=== PATIENT | male | born 1955 | race Caucasian/White ===

== ENCOUNTER 2019-05-27 06:37 | Day surgery (SDC) | payer MEDICARE ==
[2019-05-27] VITALS (9 sets, daily range): BP systolic 155–194; BP diastolic 98–103
[~2019-05-27] VITALS: Ht 160 cm; Wt 72.9 kg
[2019-05-27] MEDS ORDERED: NO HOME MEDS (07:13)
[2019-05-27] MEDS ORDERED: LIDOcaine 1% 30ml preserv. free vial IJ STA (07:25)
== END 2019-05-27 09:45 | disposition home or self-care (01) ==
LOC: SSTAY O 06:37
PROVIDERS: ATTEND Radiology Vascular & Interventional Radiology
DX: J90 Pleural effusion, not elsewhere classified (principal); Z89.612 Acquired absence of left leg above knee; Z98.890 Other specified postprocedural states; Z87.891 Personal history of nicotine dependence
CPT/HCPCS: 32555; 71045; 87070; C1729

== ENCOUNTER 2019-06-15 06:50 | Day surgery (SDC) | payer MEDICARE ==
[2019-06-15] VITALS (8 sets, daily range): BP systolic 173–190; BP diastolic 83–92
[~2019-06-15] VITALS: Ht 160 cm; Wt 71.4 kg
[~2019-06-15 06:50] MED LIST: NO HOME MEDS
[2019-06-15] MEDS ORDERED: IBUP-2697 PO (07:19)
[2019-06-15] MEDS ORDERED: HYDROcodone/acetaminophen 5mg/325mg tablet PO ONE (08:50)
== END 2019-06-15 09:05 | disposition home or self-care (01) ==
LOC: SSTAY O 06:50
PROVIDERS: ATTEND Radiology Vascular & Interventional Radiology
DX: C38.4 Malignant neoplasm of pleura (principal); Z87.891 Personal history of nicotine dependence; Z98.890 Other specified postprocedural states; Z89.612 Acquired absence of left leg above knee
CPT/HCPCS: 32555; 71045; 87070; 88108; 88305; 88341; 88342; C1729

== ENCOUNTER 2019-06-25 07:11 | Day surgery (SDC) | payer MEDICARE ==
[~2019-06-25] VITALS: Ht 160 cm; Wt 70.6 kg
[~2019-06-25 07:11] MED LIST changes: +IBUP-2697 PO; -NO HOME MEDS
[2019-06-25 07:58] VITALS: BP 168/92
[2019-06-25 08:30] VITALS: BP 174/74
[2019-06-25 08:43] VITALS: BP 210/157
[2019-06-25 08:46] VITALS: BP 185/107
[2019-06-25 08:53] VITALS: BP 182/104
== END 2019-06-25 09:20 | disposition home or self-care (01) ==
LOC: SSTAY O 07:11
PROVIDERS: ATTEND Radiology Diagnostic Radiology
DX: J90 Pleural effusion, not elsewhere classified (principal)
CPT/HCPCS: 32555; 71045

== ENCOUNTER 2019-07-07 06:39 | Day surgery (SDC) | payer MEDICARE ==
[~2019-07-07] VITALS: Ht 160 cm; Wt 70.0 kg
[2019-07-07 06:49] VITALS: BP 164/108
[2019-07-07 08:45] VITALS: BP 164/108
[2019-07-07 08:56] VITALS: BP 170/148
[2019-07-07 09:00] VITALS: BP 188/83
--- NOTE | 2019-07-07 09:02 | NUR ---
Informed Brenton Kaur BRUSH HAND pt BP, as charted. no new orders given. Pt denies pain, pt denies "feeling anxious". Pt does not currently take any blood pressure medications per Medication Reconciliation.
[2019-07-07 09:15] VITALS: BP 202/100
--- NOTE | 2019-07-07 09:15 | NUR ---
Brenton Kaur at pt bedside, BP charted. No new orders given.
[2019-07-07 09:45] VITALS: BP 170/104
== END 2019-07-07 09:30 | disposition home or self-care (01) ==
LOC: SSTAY O 06:39
PROVIDERS: ATTEND Radiology Diagnostic Radiology
DX: J90 Pleural effusion, not elsewhere classified (principal); Z98.890 Other specified postprocedural states; Z89.612 Acquired absence of left leg above knee
CPT/HCPCS: 32555; 71045

== ENCOUNTER 2019-07-16 06:01 | Day surgery (SDC) | payer MEDICARE ==
[~2019-07-16] VITALS: Ht 160 cm; Wt 68.8 kg
[2019-07-16 06:20] VITALS: BP 189/93
== END 2019-07-16 09:15 | disposition home or self-care (01) ==
LOC: SSTAY O 06:01
PROVIDERS: ATTEND Radiology Vascular & Interventional Radiology
DX: J90 Pleural effusion, not elsewhere classified (principal); Z53.8 Procedure and treatment not carried out for other reasons; Z87.891 Personal history of nicotine dependence; Z89.612 Acquired absence of left leg above knee; Z98.890 Other specified postprocedural states
CPT/HCPCS: 32555; 76882